=== PATIENT | male | born 1960 | race Caucasian/White ===

== ENCOUNTER 2017-04-16 07:03 | Emergency (ER) | payer OTHER ==
[2017-04-16 07:25] VITALS: RESP 16
[2017-04-16] MEDS ORDERED: IOPAMIDOL (ISOVUE 370) 100 ML BTL IV ONE (07:37)
--- NOTE | 2017-04-16 07:38 | EDPHY ---
H & P Stated Complaint: H/A and diploplia after having bowel movement this morning Time Seen by Provider: 04/16/17 07:32 Source: Patient - Personal History Current Tetanus Diphtheria and Acellular Pertussis (TDAP): Yes - Medical/Surgical History Other PMH: denies med - Social History Smoking Status: Never smoked Constitutional: Initial Vital Signs Temperature (C) 36.7 C 04/16/17 07:05 Heart Rate 57 L 04/16/17 07:05 Respiratory Rate 16 04/16/17 07:05 Blood Pressure 176/100 H 04/16/17 07:05 O2 Sat (%) 95 04/16/17 07:05 O2 Delivery Mode Room Air Allergies/Adverse Reactions: No Known Allergies Allergy (Verified 04/16/17 07:22) Home Medications: Medication Instructions Recorded Zolpidem Tartrate [Ambien 5MG (*)] 5 mg PO HS 04/16/17 Medical Decision Making - Diagnostics Imaging: Discussed imaging studies w/ call center professional Radiologist ED Course/Re-evaluation: CHIEF COMPLAINT: Diplopia, Left eye pain HISTORY OF PRESENT ILLNESS: The patient is a 56-year-old male who presents to the ED with sudden onset of diplopia and left eye pain. The patient was have a bowel movement this morning when he developed sudden left eye pain followed by diplopia. The patient continues to have these symptoms with an associated headache. He denies unilateral weakness in his extremities. No changes in speech or difficulty with word finding. REVIEW OF SYSTEMS: A 10 point review of systems was performed and is negative with the exception of the elements mentioned in the history of present illness. PHYSICAL EXAM: HR, BP, O2 Sat, RR. Temp noted General Appearance: Alert, well hydrated, appropriate, and non-toxic appearing. Head: Atraumatic without scalp tenderness or obvious injury Eyes: Pupils equal, round, reactive to light and accommodation, EOMI, no trauma , no injection. Ears: Clear bilaterally, no perforation, normal landmarks Nose: Atraumatic, no rhinorrhea, clear. Throat: There is no erythema or exudates, no lesions, normal tonsils, mucus membranes moist. Neck: Supple, 2+ carotid upstroke, nontender, no lymphadenopathy. Respiratory: No retractions, no distress, no wheezes, and no accessory muscle use. Lungs are clear to auscultation bilaterally. Cardiovascular: Regular rate and rhythm, no murmurs, rubs, or gallops. Bilateral carotid, radial, dorsalis pedis, and posterior tibial pulses intact. Good capillary refill all extremities. Gastrointestinal: Abdomen is soft, nontender, non-distended, no masses, no rebound, no guarding, no peritoneal signs. Musculoskeletal: Normal active ROM of all extremities, atraumatic. Neurological: Alert, appropriate, and interactive. The patient has normal DTRs and non-focal cranial nerves, motor, sensory, and cerebellar exam. Diplopia. Skin: No rashes, good turgor, no nodules on palpation. Past medical history: Denies. Past surgical history: Denies. Family history: Noncontributory. Social history: . Lives in [place]. DIFFERENTIAL DIAGNOSIS: The differential diagnosis for the patient's neurologic defecits included but was not limited to peripheral causes, central causes including CVA, TIA, electrolyte abnormalities and dehydration, cardiogenic causes, atypical causes like migraine syndrome. MEDICAL DECISION MAKING: Patient presents with sudden onset of diplopia and left eye pain while having a bowel movement this morning. On neurological exam the patient has diplopia that extinguished when covering either eye. Patient was sent to CT for imaging. CT and CTA of head is negative for bleed. There is a left sided chronic sinusitis found. I discussed findings with the patient and referred the patient to the socially responsible investment adviser [facility]. Patient and his are agreeable to the plan. - Data Points Laboratory Results: Laboratory Results 04/16/17 07:30 04/16/17 07:30 04/16/17 04/16/17 04/16/17 07:30 07:30 07:26 WBC 6.36 10^3/uL 10^3/uL (3.80-9.50) RBC 5.65 10^6/uL 10^6/uL (4.40-6.38) Hgb 16.3 g/dL g/dL (13.7-17.5) POC Hgb 17.0 gm/dL gm/dL (13.7-17.5) Hct 49.1 % % (40.0-51.0) POC Hct 50 % % (40-51) MCV 86.9 fL fL (81.5-99.8) MCH 28.8 pg pg (27.9-34.1) MCHC 33.2 g/dL g/dL (32.4-36.7) RDW 13.2 % % (11.5-15.2) Plt Count 220 10^3/uL 10^3/uL (150-400) MPV 9.6 fL fL (8.7-11.7) Neut % (Auto) 57.2 % % (39.3-74.2) Lymph % (Auto) 26.1 % % (15.0-45.0) [place] % (Auto) 8.6 % % (4.5-13.0) Eos % (Auto) 6.4 % % (0.6-7.6) Baso % (Auto) 1.4 % % (0.3-1.7) Nucleat RBC Rel Count 0.0 % % (0.0-0.2) Absolute Neuts (auto) 3.63 10^3/uL 10^3/uL (1.70-6.50) Absolute Lymphs (auto) 1.66 10^3/uL 10^3/uL (1.00-3.00) Absolute Monos (auto) 0.55 10^3/uL 10^3/uL (0.30-0.80) Absolute Eos (auto) 0.41 10^3/uL H 10^3/uL (0.03-0.40) Absolute Basos (auto) 0.09 10^3/uL 10^3/uL (0.02-0.10) Absolute Nucleated RBC 0.00 10^3/uL 10^3/uL (0-0.01) Immature Gran % 0.3 % % (0.0-1.1) Immature Gran # 0.02 10^3/uL 10^3/uL (0.00-0.10) POC Sodium 141 mEq/L mEq/L (134-144) Sodium 139 mEq/L mEq/L (134-144) POC Potassium 3.9 mEq/L mEq/L (3.3-5.0) Potassium 4.4 mEq/L mEq/L (3.5-5.2) POC Chloride 101 mEq/L mEq/L (97-110) Chloride 102 mEq/L mEq/L (97-110) Carbon Dioxide 26 mEq/l mEq/l (22-31) Anion Gap 11 mEq/L mEq/L (8-16) POC BUN 27 mg/dL H mg/dL (7-23) BUN 25 mg/dL H mg/dL (7-23) Creatinine 1.1 mg/dL mg/dL (0.7-1.3) POC Creatinine 1.2 mg/dL mg/dL (0.7-1.3) Estimated GFR > 60 Glucose 100 mg/dL mg/dL (70-100) POC Glucose 106 mg/dL H mg/dL (70-100) Calcium 9.5 mg/dL mg/dL (8.5-10.4) Medications Given: Discontinued Medications Oxycodone/Acetaminophen (Percocet 5/325) 1 tab PO EDNOW ONE Stop: 04/16/17 08:27 Last Admin: 04/16/17 08:29 Dose: 1 tab Point of Care Test Results: 04/16/17 07:26 POC Sodium 141 POC Potassium 3.9 POC Chloride 101 POC BUN 27 H POC Creatinine 1.2 POC Glucose 106 H Departure - Departure Disposition: Home, Routine, Self-Care Clinical Impression: Sinusitis Qualifiers: Sinusitis location: unspecified location Chronicity: chronic Qualified Code(s) : J32.9 - Chronic sinusitis, unspecified Condition: Good Instructions: Sinusitis (ED) Additional Instructions: You have been referred to the socially responsible investment adviser [facility]. Please call to arrange a followup appointment in regards to your chronic sinusitis. Referrals: Kat Shah MD [Primary Care Provider] - As per Instructions Raúl Noe MD [Medical Doctor] - As per Instructions (Ophthalmology) Report Scribed for: Tomasz Hernandez Report Scribed by: Jeanette Ordonez Date of Report: 04/16/17 Time of Report: 08:31
[2017-04-16 07:41] LABS: % IMMATURE GRANULYOCYTES 0.3 % (0.0-1.1); ABSOLUTE IMMATURE GRANULOCYTES 0.02 10^3/uL (0.00-0.10); ADD DIFF? NO; ADD MORPH? NO; ADD SCAN? NO; ATYPICAL LYMPHOCYTE FLAG 10 (0-99); FRAGMENT RBC FLAG 0 (0-99); HEMATOCRIT 49.1 % (40.0-51.0); HEMOGLOBIN 16.3 g/dL (13.7-17.5); LEFT SHIFT FLG 0 (0-99); LIPEMIA HEMOLYSIS FLAG 80 (0-99); MEAN CELL HEMOGLOBIN 28.8 pg (27.9-34.1); MEAN CELL HEMOGLOBIN CONCENTR. 33.2 g/dL (32.4-36.7); MEAN CELL VOLUME 86.9 fL (81.5-99.8); MEAN PLATELET VOLUME 9.6 fL (8.7-11.7); PLATELET CLUMPS FLAG 0 (0-99); PLATELET COUNT 220 10^3/uL (150-400); RED BLOOD CELL COUNT 5.65 10^6/uL (4.40-6.38); RED CELL DISTRIBUTION WIDTH 13.2 % (11.5-15.2)
[2017-04-16 08:04] LABS: ANION GAP 11 mEq/L (8-16); CALCIUM 9.5 mg/dL (8.5-10.4); CARBON DIOXIDE 26 mEq/l (22-31); CHLORIDE 102 mEq/L (97-110); CREATININE 1.1 mg/dL (0.7-1.3); GLOMERULAR FILTRATION RATE > 60; GLUCOSE 100 mg/dL (70-100); POTASSIUM 4.4 mEq/L (3.5-5.2); SODIUM 139 mEq/L (134-144)
[2017-04-16] MEDS ORDERED: OXYCODONE/APAP 5/325 TAB PO ONE (08:26)
[2017-04-16 08:40] VITALS: PULSE 52; O2SAT 97
[2017-04-16 08:41] VITALS: BP 141/92; TEMP 97.9
== END 2017-04-16 08:41 | disposition home or self-care (01) ==
DX: J32.9 Chronic sinusitis, unspecified (principal)
CPT/HCPCS: 82947-QW; Q9967

== ENCOUNTER → 2017-04-16 | Outpatient (CLI) | payer OTHER ==
[~2017-04-16] MED LIST: GADOBUTROL 10 ML VIAL IVP ONE
== END ==
LOC: FIMAGING 17:59
PROVIDERS: ATTEND Ophthalmology
DX: H49.22 Sixth [abducent] nerve palsy, left eye (principal); J32.8 Other chronic sinusitis
CPT/HCPCS: A9585

== ENCOUNTER 2018-04-17 16:21 | Emergency (ER) | payer OTHER ==
[2018-04-17 16:51] LABS: PLATELET COUNT 265 10^3/uL (150-400)
--- NOTE | 2018-04-17 16:52 | EDPHY ---
General - History Smoking Status: Never smoked Time Seen by Provider: 04/17/18 16:42 Narrative: CHIEF COMPLAINT: Chest pain, shortness of breath HISTORY OF PRESENT ILLNESS: Patient presents with complaints of chest pain and shortness of breath. The chest pain started around 6:00 a.m. This morning. It is retrosternal. It is described as a pressure, and it is worse with palpation on the area. Does not radiate. No nausea, diaphoresis. No cough but he has had some mild shortness of breath. No abdominal pain. No rash. No headache, neck pain. No recent travel, trauma or surgery. No previous coronary artery disease, venous thrombolic event. No history of diabetes, hypertension, dyslipidemia, or any primary relatives with coronary artery disease. He feels that he is under excessive stress and has been somewhat anxious and this may be contributing this. No other associated complaints or modifying factors. REVIEW OF SYSTEMS: 10 systems were reviewed and negative with the exception of the elements mentioned in the history of present illness. PCP: Dr. Kat Shah SPECIALISTS: None PAST MEDICAL HISTORY: Denies PAST SURGICAL HISTORY: No surgical history SOCIAL HISTORY: Never smoker. Lives here independently with his spouse. Works with cattle FAMILY HISTORY: Noncontributory EXAMINATION: General Appearance: Alert, no distress Head: normocephalic, atraumatic Eyes: Pupils equal and round, no conjunctival pallor or injection ENT, Mouth: Mucous membranes moist Neck: Normal inspection, supple, non-tender Respiratory: Lungs are clear to auscultation Cardiovascular: Regular rate and rhythm. No murmur. Good signs of perfusion. Gastrointestinal: Abdomen is soft and nontender Back: non-tender, no bony abnormalities Neurological: A&O, nonfocal, normal gait Skin: Warm and dry, no rash Extremities: Nontender, no pedal edema Psychiatric: Mood and affect normal DIFFERENTIAL DIAGNOSES: Including but not limited to pneumonia, pleurisy, pericarditis, pericardial effusion, ACS, PE, pneumonia, dissection MDM: 4:40 p.m. Chest pain that is mostly reproduce with palpation inspiration, shortness of breath no evidence of pneumonia by vital signs or auscultation. I have ordered laboratory studies, chest x-ray, influenza swab. He is resting comfortably in no acute distress. Point of care troponin ordered and will be sensitive because pain has been present for nearly 12 hr. Vital signs are within normal limits. He is perc negative. [place] heart score is 1 with pending troponin. 5:45 p.m. Laboratory studies all within normal limits including negative troponin. Patient re-evaluated and is resting comfortably. His pain is reproducible to palpation. We discussed his laboratory studies and chest x-ray. We discussed the sensitivity of the initial troponin. I also had a very lengthy discussion with the patient using the shared decision pathway. We discussed risks, benefits and alternatives to admission, discharged home and repeat troponin 2 hr. He has discussed this with his , I have answered all his questions, and they will consider this. 6:25 p.m. Notified by RN that the patient has elected to be discharged home. He states that he understands the risks of discharge home and would like to follow up primary care physician. I do feel it is reasonable at this time. I informed him that he is welcome to return to the emergency department at any time if he changes mind. I would like him to return if he has any exertional chest pain, radiating pain, diaphoresis or shortness of breath. He is comfortable this plan and discharged home stable condition. SUPERVISION: Patient was independently examined, but I discussed the case with my secondary supervising physician Dr. Whittington CONSULTATION: None (Braydon Juaerz) Medical Decision Making: I did not see this patient while he was in the emergency department. However his care was discussed with the PA while the patient was in the department. I agree with treatment plan and management (Ton Whittington) - Diagnostics Imaging Results: Imaging Impressions Chest X-Ray 04/17/18 16:41 Impression: Negative. - Objective Vital Signs: Initial Vital Signs Temperature (C) 98.4 F 04/17/18 16:22 Heart Rate 72 04/17/18 16:22 Respiratory Rate 18 04/17/18 16:22 Blood Pressure 154/112 H 04/17/18 16:22 O2 Sat (%) 94 04/17/18 16:22 O2 Delivery Mode Room Air Allergies/Adverse Reactions: No Known Allergies Allergy (Verified 04/17/18 16:22) Home Medications: Medication Instructions Recorded Zolpidem Tartrate [Ambien 5MG (*)] 5 mg PO HS 04/16/17 hydrOXYzine HCL [Hydroxyzine HCl] 50 mg PO Q6-8PRN PRN #20 tablet 04/17/18 Laboratory Results: Laboratory Results 04/17/18 16:34 04/17/18 16:34 04/17/18 04/17/18 04/17/18 16:51 16:38 16:34 WBC RBC Hgb Hct MCV MCH MCHC RDW Plt Count MPV Neut % (Auto) Lymph % (Auto) [place] % (Auto) Eos % (Auto) Baso % (Auto) Nucleat RBC Rel Count Absolute Neuts (auto) Absolute Lymphs (auto) Absolute Monos (auto) Absolute Eos (auto) Absolute Basos (auto) Absolute Nucleated RBC Immature Gran % Immature Gran # Sodium 141 mEq/L mEq/L (135-145) Potassium 4.7 mEq/L mEq/L (3.3-5.0) Chloride 103 mEq/L mEq/L (97-110) Carbon Dioxide 27 mEq/l mEq/l (22-31) Anion Gap 11 mEq/L mEq/L (8-16) BUN 21 mg/dL mg/dL (7-23) Creatinine 1.1 mg/dL mg/dL (0.7-1.3) Estimated GFR > 60 Glucose 94 mg/dL mg/dL (70-100) Calcium 9.9 mg/dL mg/dL (8.5-10.4) Total Bilirubin 0.7 mg/dL mg/dL (0.1-1.4) Conjugated Bilirubin 0.2 mg/dL mg/dL (0.0-0.5) Unconjugated Bilirubin 0.5 mg/dL mg/dL (0.0-1.1) AST 35 IU/L IU/L (17-59) ALT 65 IU/L IU/L (21-72) Alkaline Phosphatase 70 IU/L IU/L (38-126) POC Troponin I 0.00 ng/mL ng/mL (0.00-0.08) NT-Pro-B Natriuret Pep 55 pg/mL pg/mL (0-125) Total Protein 7.3 g/dL g/dL (6.3-8.2) Albumin 4.5 g/dL g/dL (3.5-5.0) Lipase 75 IU/L IU/L (23-300) Nasal Influenza A PCR NEGATIVE FOR FLU A (NEGATIVE) Nasal Influenza B PCR NEGATIVE FOR FLU B (NEGATIVE) 04/17/18 16:34 WBC 8.39 10^3/uL 10^3/uL (3.80-9.50) RBC 5.82 10^6/uL 10^6/uL (4.40-6.38) Hgb 17.0 g/dL g/dL (13.7-17.5) Hct 49.5 % % (40.0-51.0) MCV 85.1 fL fL (81.5-99.8) MCH 29.2 pg pg (27.9-34.1) MCHC 34.3 g/dL g/dL (32.4-36.7) RDW 13.2 % % (11.5-15.2) Plt Count 265 10^3/uL 10^3/uL (150-400) MPV 9.5 fL fL (8.7-11.7) Neut % (Auto) 69.0 % % (39.3-74.2) Lymph % (Auto) 19.3 % % (15.0-45.0) [place] % (Auto) 8.9 % % (4.5-13.0) Eos % (Auto) 1.3 % % (0.6-7.6) Baso % (Auto) 1.1 % % (0.3-1.7) Nucleat RBC Rel Count 0.0 % % (0.0-0.2) Absolute Neuts (auto) 5.79 10^3/uL 10^3/uL (1.70-6.50) Absolute Lymphs (auto) 1.62 10^3/uL 10^3/uL (1.00-3.00) Absolute Monos (auto) 0.75 10^3/uL 10^3/uL (0.30-0.80) Absolute Eos (auto) 0.11 10^3/uL 10^3/uL (0.03-0.40) Absolute Basos (auto) 0.09 10^3/uL 10^3/uL (0.02-0.10) Absolute Nucleated RBC 0.00 10^3/uL 10^3/uL (0-0.01) Immature Gran % 0.4 % % (0.0-1.1) Immature Gran # 0.03 10^3/uL 10^3/uL (0.00-0.10) Sodium Potassium Chloride Carbon Dioxide Anion Gap BUN Creatinine Estimated GFR Glucose Calcium Total Bilirubin Conjugated Bilirubin Unconjugated Bilirubin AST ALT Alkaline Phosphatase POC Troponin I NT-Pro-B Natriuret Pep Total Protein Albumin Lipase Nasal Influenza A PCR Nasal Influenza B PCR Point of Care Test Results: Chemistry 04/17/18 16:38 POC Troponin I 0.00 ng/mL ng/mL (0.00-0.08) Departure - Departure Disposition: Home, Routine, Self-Care Clinical Impression: Chest pain Qualifiers: Chest pain type: unspecified Qualified Code(s): R07.9 - Chest pain, unspecified Condition: Good Instructions: Chest Pain (ED), Pleurisy (ED) Additional Instructions: 1. Ibuprofen 600 mg every 6-8 hours as needed 2. Aspirin 81 mg once daily 3. Contact primary care physician to be seen shortly outpatient 4. Contact on-call pharmaceutical representative to discuss outpatient workup and cardiac stress testing if indicated 5. Return to emergency department for any exertional pain, radiating pain, shortness of breath or sweating Referrals: Paul Raphael MD [Medical Doctor] - As per Instructions Kat Shah MD [Medical Doctor] - As per Instructions Prescriptions: hydrOXYzine HCL [Hydroxyzine HCl] 50 mg PO Q6-8PRN PRN #20 tablet PRN Reason: Anxiety
[2018-04-17 18:30] VITALS: BP 137/78
--- NOTE | 2018-04-17 22:30 | CPEKG ---
Test Reason : OPEN Blood Pressure : / mmHG Vent. Rate : 079 BPM Atrial Rate : 079 BPM P-R Int : 180 ms QRS Dur : 091 ms QT Int : 366 ms P-R-T Axes : 049 061 038 degrees QTc Int : 420 ms Sinus rhythm Confirmed by Tno Whittington ([id number]) on 04/17/2018 10:30:10 PM Referred By: Confirmed By:Ton Whittington
== END 2018-04-17 18:36 | disposition home or self-care (01) ==
DX: R07.9 Chest pain, unspecified (principal); R06.02 Shortness of breath
CPT/HCPCS: 84484-PO

== ENCOUNTER → 2018-10-15 | Outpatient (CLI) | payer OTHER | LOC: GIMAGING 10:08 → EDSTATUS 16:08 | PROVIDERS: ATTEND Family Medicine | DX: M25.561 Pain in right knee (principal); M84.863 Other disorders of continuity of bone, right fibula | CPT/HCPCS: 73562-PO ==